=== PATIENT | male | born 1990 | race Caucasian/White ===

== ENCOUNTER 2019-01-31 16:11 | Emergency (ER) | payer OTHER ==
[~2019-01-31] VITALS: Ht 165.1 cm; Wt 182.3 kg
[2019-01-31 16:15] VITALS: BP 132/69
--- NOTE | 2019-01-31 16:18 | NUR ---
PT TO BED 6
--- NOTE | 2019-01-31 16:36 | NUR ---
DR COOLEY EVLUATING PATIENT AT BEDSIDE.
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
[2019-01-31 17:43] LABS: APPEARANCE,URINE CLEAR (CLEAR); BILIRUBIN,URINE NEGATIVE (NEGATIVE); BLOOD, URINE NEGATIVE (NEGATIVE); COLOR,URINE YELLOW (YELLOW); LEUKOCYTE ESTERASE ,URINE NEGATIVE (NEGATIVE); NITRITE, URINE NEGATIVE (NEGATIVE); UGLUCOSE NEGATIVE (NEGATIVE)
[2019-01-31 17:51] LABS: BASOPHILS % (AUTO) 0.6 % (0.0-2.0); EOSINOPHILS # (AUTO) 0.3 K/uL (0-0.4); EOSINOPHILS % (AUTO) 3.5 % (0.0-4.0); HEMOGLOBIN 12.6 g/dL (12.0-18.0); LYMPHOCYTES % (AUTO) 37.2 % (20.5-51.1); MEAN CORPUSCULAR HEMOGLOBIN 30 pg (27-31); MEAN CORPUSCULAR HGB CONC 33 g/dL (33-37); MEAN CORPUSCULAR VOLUME 90.3 fL (80-94); MONOCYTES # (AUTO) 0.6 K/uL (0.8-1.0); MONOCYTES % (AUTO) 7.5 % (1.7-9.3); NEUTROPHILS # (AUTO) 4.1 K/uL (1.8-7.7); NEUTROPHILS % (AUTO) 51.2 % (42.2-75.2); PLATELET COUNT (AUTO) 198 K/uL (140-450); RED BLOOD CELL COUNT(AUTO) 4.21 MIL/uL (4.20-6.10); RED CELL DISTRIBUTION WIDTH 14.7 % (11.6-13.7)
--- NOTE | 2019-01-31 18:18 | NUR ---
PT IN BED RESTING, IN STABLE CONDITION AT THIS TIME. WILL CONTINUE TO MONITOR CLOSELY
[2019-01-31 18:32] LABS: ALBUMIN 3.3 g/dL (3.4-5.0); ANION GAP 17.2 (8-16); ASPARTATE AMINOTRANSFERASE 48 U/L (15-37); CARBON DIOXIDE 27.6 mmol/L (21-32); CHLORIDE 101 mmol/L (98-107); CREATININE 0.7 mg/dL (0.7-1.3); GFR ARICAN-AMERICAN 173 mL/min (>90); GLUCOSE 133 mg/dL (74-106); POTASSIUM 3.8 mmol/L (3.5-5.1); SODIUM SERUM 142 mmol/L (136-145); TOTAL BILIRUBIN 0.2 mg/dL (0.0-1.0); UREA NITROGEN, BLOOD 8 mg/dL (7-18)
--- NOTE | 2019-01-31 19:15 | NUR ---
COVERING PRIMARY NURSE FOR LUNCH. RECEIVED REPORT. PT SITTING UP IN BED; RESTING COMFORTABLY. SKIN PINK, WARM, DRY. BREATHING EVEN, UNLABORED. AWAITING TELEPSYCH. MONITOR AT BEDSIDE.
--- NOTE | 2019-01-31 19:15 | NUR ---
REPORT GIVEN TO VERA WHARTON. PT IN STABLE CONDITION AT THIS TIME.
--- NOTE | 2019-01-31 21:00 | NUR ---
PT IN BED RESTING, VSS AT THIS TIME, WILL CONTINUE TO MONITOR CLOSELY.
[2019-01-31] MEDS ORDERED: LOPERAMIDE 2 MG CAP PO ONE (21:45)
--- NOTE | 2019-01-31 23:00 | NUR ---
PT IN BED ASLEEP, RESTING, VSS AT THIS TIME.
--- NOTE | 2019-02-01 00:27 | NUR ---
SPOKE WITH DR. MAHAJAN TELEPSYCH AND INFORMED REGARDING PT STATUS.
--- NOTE | 2019-02-01 00:45 | NUR ---
PT ON TELEPSYCH CONFERENCE WITH DR. MAHAJAN
--- NOTE | 2019-02-01 01:10 | NUR ---
PT RESTING IN BED, VSS AT THIS TIME
--- NOTE | 2019-02-01 01:20 | NUR ---
DR. MAHAJAN TELEPSYCH CALLED BACK AND GAVE ORDERS TO DISCHARGE PATIENT TO FAMILY. ED MD DR. CRUZ NOTIFIED. PT IN STABLE CONDITION.
--- NOTE | 2019-02-01 01:59 | NUR ---
REPORT GIVEN TO VERA CABALLERO. PT VSS AT THIS TIME.
--- NOTE | 2019-02-01 02:12 | NUR ---
RECEIVED REPORT FROM VERA LOPEZ. TRANSFER OF CARE AT THIS TIME. PT AWAKE, ALERT, ASKING TO GET DRESSED. SECURITY CALLED FOR BELONGINGS.
--- NOTE | 2019-02-01 02:46 | NUR ---
CALLED AND SPOKE TO PT'S MOTHER, CATHERINE. SHE WILL RPG PROGRAMMER UP AT 08:00. PT TO BE RELEASED TO FAMILY. PT AWAKE SITTING IN BED QUITELY.
--- NOTE | 2019-02-01 03:30 | NUR ---
PT SLEEPING COMFORTABLY. AROUSABLE TO VERBAL STIMULI. SKIN PINK, WARM, DRY. BREATHING EVEN, UNLABORED. AWAITING WELDING PROCESS ENGINEER BY MOM AT 0800.
--- NOTE | 2019-02-01 04:30 | NUR ---
PT SLEEPING COMFORTABLY. AROUSABLE TO VERBAL STIMULI. SKIN PINK, WARM, DRY. BREATHING EVEN, UNLABORED. AWAITING ASIAN STUDIES PROGRAM CHAIR BY MOM AT 0800.
--- NOTE | 2019-02-01 05:30 | NUR ---
PT AWAKE, SITTING UP COMFORTABLY IN BED. NO COMPLAINTS AT THIS TIME. PT REQUESTING BREAKFAST TRAY. ORDER PUT IN FOR REGULAR DIET. SKIN PINK, WARM, DRY. BREATHING EVEN, UNLABORED. AWAITING MC KAY STITCHER BY MOM AT 0800.
--- NOTE | 2019-02-01 06:30 | NUR ---
PT AWAKE, SITTING UP COMFORTABLY IN BED. NO COMPLAINTS AT THIS TIME. PT REQUESTING BREAKFAST TRAY. ORDER PUT IN FOR REGULAR DIET. SKIN PINK, WARM, DRY. BREATHING EVEN, UNLABORED. AWAITING CLIP BOLTER AND WRAPPER BY MOM AT 0800.
--- NOTE | 2019-02-01 07:11 | NUR ---
REPORT GIVEN TO VERA CORONA. TRANSFER OF CARE AT THIS TIME.
--- NOTE | 2019-02-01 07:11 | NUR ---
RECEIVED REPORT FROM ANTHONY GAMEZ. PT RESTING IN BED, AWAKE, IN STABLE CONDITION. PT TO BE PICKED UP BY MOTHER AT 0800 TODAY.
--- NOTE | 2019-02-01 07:55 | NUR ---
PATIENT SITTING UP IN BED, EATING BREAKFAST.
--- NOTE | 2019-02-01 08:06 | NUR ---
CALLED MOTHER WHO STATES SHE WILL BE HERE TO APARTMENT HOTEL MANAGER PATIENT IN 20 MINUTES.
--- NOTE | 2019-02-01 10:04 | NUR ---
PATIENT SPEAKING ON PHONE WITH MOTHER. MOTHER STATES SHE WILL COME ELEVATOR OPERATOR SERVICE PATIENT AT 1030.
--- NOTE | 2019-02-01 11:05 | NUR ---
Patient discharged with v/s stable. Written and verbal after care instructions given and explained. Patient AND MOTHER alert, oriented and verbalized understanding of instructions. Ambulatory with steady gait. All questions addressed prior to discharge. ID band removed. Patient advised to follow up with PMD. Rx of IMODIUM given. Patient educated on indication of medication including possible reaction and side effects. Opportunity to ask questions provided and answered.
[2019-02-01 11:06] VITALS: BP 161/88
== END 2019-02-01 11:05 | disposition home or self-care (01) ==
LOC: MED 16:11
DX: F43.21 Adjustment disorder with depressed mood (principal); R46.2 Strange and inexplicable behavior; F32.9 Major depressive disorder, single episode, unspecified
CPT/HCPCS: 36415; 80053; 81003; 85025; 93005; 99283; G0482